=== PATIENT | female | born 1980 | race Caucasian/White ===

== ENCOUNTER 2019-09-30 23:19 | Inpatient (IN) | payer OTHER ==
[2019-09-30] MEDS ORDERED: ZOLPIDEM TARTRATE 5 MG TABLET PO PRN (23:36)
[2019-09-30] MEDS ORDERED: RINGERS SOLUTION,LACTATED 300 ML IV ONE (23:36)
[2019-09-30] MEDS ORDERED: ACETAMINOPHEN 325 MG TABLET PO PRN (23:36)
[2019-09-30] MEDS ORDERED: OXYTOCIN/0.9 % SODIUM CHLORIDE 30 UNIT/500 ML RTUINJ IV PRN (23:36)
[2019-09-30] MEDS ORDERED: MAG HYDROX/AL HYDROX/SIMETH SUSP 30 ML UDCUP PO PRN (23:36)
[2019-09-30] MEDS ORDERED: DINOPROSTONE 10 MG VAGINAL INSERT.SR PV ONE (23:36)
[2019-09-30] MEDS ORDERED: PENICILLIN G POTASSIUM 5,000,000 UNIT in DEXTROSE 5%-WATER 100 ML IV ONE (23:42)
[2019-10-01] MEDS: RINGERS SOLUTION,LACTATED 1,000 ML IV PRN ×3 (00:45→22:57)
[2019-10-01 00:46] LABS: APPEARANCE,URINE SLIGHTLY-CLOUDY; BILIRUBIN,URINE NEGATIVE (NEGATIVE); COLOR,URINE STRAW; GLUCOSE, URINE NEGATIVE (NEGATIVE); KETONES,URINE NEGATIVE (NEGATIVE); LEUKOCYTE ESTERASE,URINE TRACE (NEGATIVE); NITRITE,URINE NEGATIVE (NEGATIVE); PROTEIN,URINE NEGATIVE (NEGATIVE); URINE SPECIFIC GRAVITY 1.006; UROBILINOGEN,URINE NEGATIVE mg/dL (<2.0)
[2019-10-01 00:47] LABS: ABSOLUTE EOSINOPHILS # (AUTO) 0.2 10^3/uL (0.0-0.6); ABSOLUTE LYMPHOCYTES (AUTO) 2.2 10^3/uL (0.5-4.7); ABSOLUTE MONOCYTES (AUTO) 0.8 10^3/uL (0.1-1.4); ABSOLUTE NEUT (AUTO) 7.1 10^3/uL (1.7-8.2); BASOPHILS % (AUTO) 0.4 % (0-2); EOSINOPHILS % (AUTO) 1.8 % (0-6); HEMATOCRIT 37.1 % (36.0-47.0); HEMOGLOBIN 12.8 g/dL (12.0-15.5); LYMPHOCYTES % (AUTO) 21.4 % (13-45); MEAN CORPUSCULAR HEMOGLOBIN 32.8 pg (27.0-33.4); MEAN CORPUSCULAR HGB CONC 34.5 g/dL (32.0-36.0); MEAN CORPUSCULAR VOLUME 95 fl (80-97); MONOCYTES % (AUTO) 7.8 % (3-13); PLATELET COUNT 108 10^3/uL (150-450); RED CELL DISTRIBUTION WIDTH 15.3 % (11.5-14.0); SEGMENTED NEUTROPHILS % (AUTO) 68.6 % (42-78); TOTAL CELLS COUNTED % (AUTO) 100 %; WHITE BLOOD COUNT 10.4 10^3/uL (4.0-10.5)
[2019-10-01] MEDS ORDERED: DINOPROSTONE 10 MG VAGINAL INSERT.SR ONE (01:03)
[2019-10-01 01:26] LABS: URINE AMPHETAMINES SCREEN NEGATIVE; URINE BARBITURATES SCREEN NEGATIVE; URINE BENZODIAZEPINES SCREEN NEGATIVE; URINE COCAINE SCREEN NEGATIVE; URINE MARIJUANA (THC) SCREEN NEGATIVE; URINE METHADONE SCREEN NEGATIVE; URINE PHENCYCLIDINE SCREEN NEGATIVE
[2019-10-01] MEDS ORDERED: PENICILLIN G POTASSIUM 2,500,000 UNIT in DEXTROSE 5%-WATER 50 ML IV SCH (03:43)
--- NOTE | 2019-10-01 07:14 | Admission Physical ---
Datetime Report Generated by CPN: 10/01/2019 07:13 CURRENT ADMISSION Chief Complaint: Scheduled Induction of Labor Indication for Induction: Postterm; Polyhydramnios Admit Impression : Term, Intrauterine ; No Active Labor; Induction of Labor Admit Plan: Admit to Unit; Initiate Labor Induction Protocol ALLERGIES Medication Allergies: Yes Medication Allergies: prochlorperazine/Dystonia (10/01/2019); proguanil (10/01/2019); atovaquone (10/01/2019) Latex: No Latex Allergies OBSTETRICAL HISTORY EDC: 09/26/2019 00:00 : 1 Para: 0 Term: 0 : 0 SAB: 0 IAB: 0 Ectopic: 0 Livin Cesareans: 0 VBACs: 0 Multiple Births: 0 Gestational Diabetes: Yes Rh Sensitization: No Incompetent Cervix: No ADRIEL: No Infertility: No ART Treatment: No Uterine Anomaly: No IUGR: No Hx Previous C/S: No Macrosomia: No Hx Loss/Stillborn: No PIH: No Hx : No Depression/PP Depression: No PTL/PROM: No Post Hemorrhage: No Current Procedures: Ultrasound; NST SEE RECORDS Alcohol: No Marijuana : No Cocaine: No Other Illicit Drugs: No Cigarettes: Never Smoker. 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 Heart Disease: No Hosp/Surgery: No Autoimmune Disorder: No Anesthetic Complications: No Kidney Disease: No Abnormal Pap Smear: No Neuro/Epilepsy: No Psychiatric Disorders: No Other Medical Diseases: No Hepatitis/Liver Disease: No Significant Family History: No Varicosities/Phlebitis: No Trauma/Violence : No Thyroid Dysfunction: No Medical History Comments: cyst removal in 1994, PCOS INFECTIOUS HISTORY Gonorrhea: No Genital Herpes: Yes Chlamydia: No Tuberculosis: No Syphilis: No Hepatitis: No HIV/AIDS Exposure: No Rash or Viral Illness: No HPV: No PHYSICAL EXAM General: Normal HEENT: Normal Neurologic: Normal Thyroid: Normal Heart: Normal Lungs: Normal Breast: Normal Back: Normal Abdomen: Normal Genitourinary Exam: Normal Extremities: Normal DTRs: Normal Pelvic Type: Adequate Vital Signs: Reviewed; Within Normal Limits VAGINAL EXAM Dilatation: 1 Effacement: 25 Station: -3 MEMBRANES Pooling: Negative Membranes: Intact FETUS A EGA: 40.5 Monitoring: External US FHR- Baseline: 130 Variability: Moderate 6-25bpm Accelerations: 15X15 Decelerations: None FHR Category: Category I Estimated Weight (gm): 3900 Presentation: Vertex Admit Comment: cervidil PLANS FOR LABOR AND DELIVERY Labor and Delivery: Plan Pain Management: Natural Feeding Preference: Breast Benefit of Breast Feed Discussed: Yes Circumcision: Yes INFORMED CONSENT Signature: with User ID: [email or web address]
[2019-10-01] MEDS ORDERED: OXYTOCIN 10 UNIT/ML VIAL ONE (10:14)
[2019-10-01] MEDS ORDERED: MISOPROSTOL 0.2 MG TABLET ONE (10:14)
[2019-10-01] MEDS ORDERED: OXYTOCIN/0.9 % SODIUM CHLORIDE 30 UNIT/500 ML RTUINJ ONE (10:15)
[2019-10-01] MEDS ORDERED: LIDOCAINE 1% INJ-PF (10 MG/ML) 30 ML SDV ONE (10:15)
[2019-10-01] MEDS ORDERED: PENICILLIN G-K 5 MILLION UNIT VIAL ONE (13:07)
[2019-10-01] MEDS ORDERED: GENTAMICIN SULFATE INJ 80 MG/2 ML VIAL IV ONE (13:24)
[2019-10-01] MEDS ORDERED: GENTAMICIN SULFATE INJ 80 MG/2 ML VIAL IV SCH (14:00)
[2019-10-01] MEDS ORDERED: GENTAMICIN SULFATE 160 MG in DEXTROSE 5%-WATER 100 ML IV ONE (14:30)
[2019-10-01] MEDS: PENICILLIN G POTASSIUM 2,500,000 UNIT in DEXTROSE 5%-WATER 50 ML IV SCH ×2 (17:18→21:44)
[2019-10-01 19:50] LABS: HEMATOCRIT 39.2 % (36.0-47.0); HEMOGLOBIN 13.1 g/dL (12.0-15.5); MEAN CORPUSCULAR HEMOGLOBIN 31.9 pg (27.0-33.4); MEAN CORPUSCULAR HGB CONC 33.5 g/dL (32.0-36.0); MEAN CORPUSCULAR VOLUME 96 fl (80-97); PLATELET COUNT 115 10^3/uL (150-450); RED CELL DISTRIBUTION WIDTH 15.5 % (11.5-14.0); WHITE BLOOD COUNT 14.3 10^3/uL (4.0-10.5)
[2019-10-01] MEDS ORDERED: FENTANYL/BUPIVACAINE/NS/PF 300 MCG/150 ML RTUINJ EPI ONE (22:19)
[2019-10-01] MEDS ORDERED: EPHEDRINE SULFATE INJ 50 MG/1 ML AMPULE ONE (22:19)
[2019-10-01] MEDS ORDERED: BUPIVACAINE HCL 0.25 % INJ/PF (2.5 MG/1 ML) 30 ML VIAL ONE (22:20)
[2019-10-01] MEDS: GENTAMICIN SULFATE 110 MG in DEXTROSE 5%-WATER 100 ML IV SCH (22:56)
[2019-10-02] MEDS: PENICILLIN G POTASSIUM 2,500,000 UNIT in DEXTROSE 5%-WATER 50 ML IV SCH ×4 (01:53→13:52)
[2019-10-02] MEDS: GENTAMICIN SULFATE 110 MG in DEXTROSE 5%-WATER 100 ML IV SCH ×3 (06:46→22:16)
--- NOTE | 2019-10-02 10:03 | L&D Progress Notes ---
PROGRESS NOTES Datetime Report Generated by CPN: 10/02/2019 10:03 PROGRESS NOTE Vital Signs : Reviewed; Within Normal Limits Comment: Cat 1 strip, irregular uc's, feeling more pressure, changing position q 20 minutes, recheck cervix at 10:30 VAGINAL EXAM Dilatation: 1 Effacement: 25 Station: -3 LAST VAGINAL EXAM-NURSING Nursing Exam Dilitation: 8-9 Nursing Exam Effacement: 90 Nursing Exam Station: 0 Nursing Exam Contractions: repositioning patient MEMBRANES Pooling: Negative Membranes: Intact FETUS A Monitoring: External US : 40.5 Estimated Weight (gm): 3900 Presentation: Vertex SIGNATURE SIGNATURE: [id number] Assignment: Jen Mulligan MD Signature: with User ID: [email or web address] : with User ID: [email or web address]
[2019-10-02] MEDS ORDERED: DIPHENHYDRAMINE HCL 50 MG/ML VIAL IV ONE ×2 (10:41→10:43)
[2019-10-02] MEDS ORDERED: DIPHENHYDRAMINE HCL 50 MG/ML VIAL ONE (10:41)
[2019-10-02] MEDS: RINGERS SOLUTION,LACTATED 1,000 ML IV PRN (11:21)
--- NOTE | 2019-10-02 11:24 | L&D Progress Notes ---
PROGRESS NOTES Datetime Report Generated by CPN: 10/02/2019 11:24 PROGRESS NOTE Impression: Reassuring Heart Rate Vital Signs : Reviewed Comment: Benadryl given for cervix swelling, will reckeck in 1 hour, Dr. Mulligan on unit, advised of no change in cervix or descent from 8 AM, pt tired, discussed C/S and pt is agreeable, Dr. Mulligan will come in and discuss POC with her, Cat 1 strip, irreg uc's VAGINAL EXAM Dilatation: 1 Effacement: 25 Station: -3 LAST VAGINAL EXAM-NURSING Nursing Exam Dilitation: 8-9 Nursing Exam Effacement: 90 Nursing Exam Station: 0 Nursing Exam Contractions: repositioning patient MEMBRANES Pooling: Negative Membranes: Intact FETUS A Monitoring: External US Variability: Moderate 6-25bpm Accelerations: 15X15 FHR Category: Category I : 40.5 Estimated Weight (gm): 3900 Presentation: Vertex SIGNATURE SIGNATURE: [id number];[id number] Assignment: Jen Mulligan MD Signature: with User ID: [email or web address] : with User ID: [email or web address]
--- NOTE | 2019-10-02 11:49 | L&D Progress Notes ---
PROGRESS NOTES Datetime Report Generated by CPN: 10/02/2019 11:48 PROGRESS NOTE Impression: Reassuring Heart Rate Vital Signs : Reviewed Comment: VE complete, + 1, will start pushing, irreg uc's, Pitocin off, variable and late decelerations, moderate variability, change positions VAGINAL EXAM Dilatation: 1 Effacement: 25 Station: -3 LAST VAGINAL EXAM-NURSING Nursing Exam Dilitation: 8-9 Nursing Exam Effacement: 90 Nursing Exam Station: 0 Nursing Exam Contractions: repositioning patient MEMBRANES Pooling: Negative Membranes: Intact FETUS A Monitoring: External US Variability: Moderate 6-25bpm Accelerations: 15X15 FHR Category: Category I : 40.5 Estimated Weight (gm): 3900 Presentation: Vertex SIGNATURE SIGNATURE: [id number];[id number] Assignment: Jen Mulligan MD Signature: with User ID: [email or web address] : with User ID: [email or web address]
--- NOTE | 2019-10-02 13:44 | L&D Progress Notes ---
PROGRESS NOTES Datetime Report Generated by CPN: 10/02/2019 13:43 PROGRESS NOTE Impression: Reassuring Heart Rate Vital Signs : Reviewed Comment: Dr. Mulligan in room, pt pushing, nurses state she is making progress the last few pushed. variables and ocas late, moderate variability, + accels VAGINAL EXAM Dilatation: 1 Effacement: 25 Station: -3 LAST VAGINAL EXAM-NURSING Nursing Exam Dilitation: anterior lip Nursing Exam Effacement: 90 Nursing Exam Station: 0 Nursing Exam Contractions: repositioning patient MEMBRANES Pooling: Negative Membranes: Intact FETUS A Monitoring: External US Variability: Moderate 6-25bpm Accelerations: 15X15 FHR Category: Category I : 40.5 Estimated Weight (gm): 3900 Presentation: Vertex SIGNATURE SIGNATURE: [id number] Assignment: Jen Mulligan MD Signature: with User ID: [email or web address] : with User ID: [email or web address]
--- NOTE | 2019-10-02 14:30 | L&D Progress Notes ---
PROGRESS NOTES Datetime Report Generated by CPN: 10/02/2019 14:29 PROGRESS NOTE Impression: Reassuring Heart Rate Vital Signs : Reviewed Comment: Pt has been pushing and is very tired. The est wt is 7-8 lbs. The head is at 2 plus station. We are going to try a vacuum delivery. If it is unsuccessful we will likely proceed with a c section. VAGINAL EXAM Dilatation: 1 Effacement: 25 Station: -3 LAST VAGINAL EXAM-NURSING Nursing Exam Dilitation: anterior lip Nursing Exam Effacement: 90 Nursing Exam Station: 0 Nursing Exam Contractions: repositioning patient MEMBRANES Pooling: Negative Membranes: Intact FETUS A Monitoring: External US Variability: Moderate 6-25bpm Accelerations: 15X15 FHR Category: Category I : 40.5 Estimated Weight (gm): 3900 Presentation: Vertex SIGNATURE SIGNATURE: [id number];[id number] Assignment: Jen Mulligan MD Signature: with User ID: Patricia : with User ID: Patricia
[2019-10-02] MEDS ORDERED: CEFAZOLIN SODIUM 2 GM in DEXTROSE 5%-WATER 50 ML IV PRN (14:49)
[2019-10-02] MEDS ORDERED: FENTANYL CITRATE INJ/PF 100 MCG/2 ML AMPUL ONE (14:51)
[2019-10-02] MEDS ORDERED: OXYTOCIN 10 UNIT/ML VIAL ONE (14:51)
[2019-10-02] MEDS ORDERED: LIDOCAINE 2% INJ-PF (20 MG/ML) 10 ML AMPUL ONE (14:51)
[2019-10-02] MEDS ORDERED: MIDAZOLAM 2 MG/2 ML INJ ONE (14:52)
[2019-10-02] MEDS ORDERED: CEFAZOLIN 2 GM/D5W RTU 2 GM/50 ML RTUPB IV ONE (14:52)
[2019-10-02] MEDS ORDERED: MORPHINE SULFATE 10 MG/ML INJ ONE (14:52)
[2019-10-02] MEDS ORDERED: ONDANSETRON HCL INJ/PF 4 MG/2 ML SDV ONE (14:52)
[2019-10-02] MEDS ORDERED: OXYTOCIN/0.9 % SODIUM CHLORIDE 30 UNIT/500 ML RTUINJ ONE (14:52)
--- NOTE | 2019-10-02 16:13 | Operative Report ---
Operative Report DATE OF SURGERY: 10/02/19 PREOPERATIVE DIAGNOSIS: Arrest of descent POSTOPERATIVE DIAGNOSIS: Same OPERATION: Primary via low transverse uterine incision SURGEON: SEDA DE LA CRUZ ANESTHESIA: Epidural TISSUE REMOVED OR ALTERED: Placenta COMPLICATIONS: None ESTIMATED BLOOD LOSS: 600 cc INTRAOPERATIVE FINDINGS: Viable male . Normal uterus tubes and ovaries PROCEDURE: Patient was taken to the OR and placed in supine position after her spinal anesthesia. She is prepared and draped in sterile fashion. [place] was placed for drainage of the bladder. Low transverse incision was made and carried down the level of the fascia. The fascial incision was made with knife and extended bilaterally with curved Bartholomew scissors. The fascia was off the rectus muscles using sharp and blunt dissection. The rectus muscles are in the midline. The peritoneum was entered without incident. Bladder blade was placed in uterine segment was identified. A low transverse incision was made creating a bladder flap. Bladder blade was placed low transverse uterine incision was made with the knife and extended with fingertips. A vaginal hand was used to assist with delivering the head out of the pelvis. The baby was delivered with some fundal pressure. Mouth and nose were suctioned free. The cord is doubly clamped and cut. Baby is passed off to the shipper/receiver in attendance. The placenta was manually extracted with trailing membranes. The uterus was externalized wrapped in a moist lap sponge. Uterine contents wiped free. Uterus was closed with a running locking layer of 0 chromic suture using the second layer to imbricate the first completing a double layer closure of the uterus. She was noted to have 6 some degree of uterine atony after such a long labor. The serosa was closed with a running 2-0 chromic stitch. The pelvis was irrigated and suctioned free of fluid the uterus was replaced in the abdomen. The abdominal wall peritoneum was closed with running 2-0 chromic stitch. Fascia was closed with a running 0 Vicryl in 2 segments. Everett's layer was brought together with 0 plain gut stitch and the skin was closed with running subcuticular 4-0 undyed Vicryl stitch. The wound was dressed mother and baby did well.
--- NOTE | 2019-10-02 17:55 | Delivery Summary ---
Del Sum A-C Datetime Report Generated by CPN: 10/02/2019 17:55 DELIVERY PERSONNEL DELIVERY PERSONNEL: [id number] Delivery Doctor:: Jen Mulligan MD Nurse Concession Worker Certified:: Angela Corral CNM ADJUNCT TEACHER:: Neo Smith CRNA Labor and Delivery Nurse:: Eliane Luevano RN Side Trimmer:: Eliane Luevano RN Neonatal Nurse Practitioner:: SHERRY Alfaro Nursery Nurse:: Mariana Poon RN Mig Welder/OUTSIDE INSTALLATION MACHINIST: Lester Braswell CST Mig Welder/OUTSIDE INSTALLATION MACHINIST: Camille Cunha SHRIMPER MATERNAL INFORMATION Delivery Anesthesia: Epidural Medications After Delivery: Pitocin 30 Units in 500ml NS/D5W Meds After Delivery Comment: 20 units in 1000mL NS given in OR Delivery QBL: 845 Maternal Complications: Prolonged Labor > 20 Hrs; Prolonged Second Stage > 2 Hrs LABOR SUMMARY EDC: 09/26/2019 00:00 No. Babies in Womb: 1 Attempted: No Labor Anesthesia: Epidural LABOR INFORMATION Reason for Induction: Post Dates; Maternal Diabetes; Polyhydramnios (Annotations: Data stored by [facility] on behalf of user) Onset of Labor: 10/02/2019 23:45 Complete Dilatation: 10/02/2019 11:44 Cervical Ripening Agents: Cervidil Oxytocin: Induction Group B Beta Strep: positive Antibiotics # of Doses: 6 Antibiotics Time of Last Dose: 907 Name of Antibiotic Given: Penicillin Steroids Given: None Reason Steroids Not Administered: Not Applicable MEMBRANES Membranes Rupture Method: Spontaneous Rupture of Membranes: 10/01/2019 12:00 Length of Rupture (hr): 26.43 Amniotic Fluid Color: Clear Amniotic Fluid Amount: Scant Amniotic Fluid Odor: Normal STAGES OF LABOR Stage 1 hr: -12 Stage 1 min: -1 Stage 2 hr: 2 Stage 2 min: 42 Stage 3 hr: 1 Stage 3 min: 1 Total Time in Labor hr: -8 Total Time in Labor min: -18 VAGINAL DELIVERY Episiotomy: None Laceration #1: None Laceration Extension #1: N/A Sponge Count Correct: N/A Sharps Count Correct: N/A CSECTION DELIVERY Primary Indication: Arrest of Descent Other Primary Indication: CPD CSection Urgency: Non-Scheduled CSection Incidence: Primary Labor: Labor Elective: N/A CSection Incision: Lower Uterine Transverse BABY A INFORMATION Delivery Date/Time: 10/02/2019 14:26 Method of Delivery: Born in Route : No : N/A Forceps: N/A Vacuum Extraction: Failed Shoulder Dystocia : No PRESENTATION/POSITION BABY A Presentation: Cephalic Cephalic Presentation: Vertex Vertex Position: n/a Breech Presentation: N/A PLACENTA INFORMATION BABY A Placenta Delivery Time : 10/02/2019 15:27 Placenta Method of Delivery: Manual Removal Placenta Status: Delivered SCORES BABY A Heart Rate 1 min: >100 bpm Resp Effort 1 min: Good Cry Reflex Irritability 1 min: Cough or Sneeze or Pulls Away Muscle Tone 1 min: Active Motion Color 1 min: Blue/Pale Resuscitation Effort 1 min: Tactile Stimulation SCORE 1 MIN: 8 Heart Rate 5 min: >100 bpm Resp Effort 5 min: Good Cry Reflex Irritability 5 min: Cough or Sneeze or Pulls Away Muscle Tone 5 min: Active Motion Color 5 min: Body Milfay, Extremities Blue Resuscitation Effort 5 min: N/A SCORE 5 MIN: 9 INFORMATION BABY A Gestational Age at Delivery: 40.6 Gestational Status: Full Term- 39- 40.6 Weeks Infant Outcome : Liveborn Infant Condition : Stable Infant Sex: Male IDENTIFICATION BABY A Infant Verification Date/Time: 10/02/2019 14:40 ID Band Number: [id number] Mother's Name Verified: Yes Infant RN Verifying : Lillian Patricia RN Additional Verifying Personnel: T. Cleve, RN WEIGHT/LENGTH BABY A Infant Birthweight (gm): 3400 Infant Weight (lb): 7 Infant Weight (oz): 8 Length (in): 20.50 Length (cm): 52.07 CORD INFORMATION BABY A No. Cord Vessels: 3 Nuchal Cord : N/A Cord Blood Taken: Yes-For Eval (Mom's Blood Type - or O+) Infant Suction: None ASSESSMENT BABY A Infant Complications: None Physical Findings at Delivery: Within Normal Limits Respirations: Appears Normal Skin to Skin: Yes Rail Switchman/ALS Called : No Infant Care By: JHONNY Trent Transferred To: Nursery BABY B INFORMATION : N/A
[2019-10-02] MEDS ORDERED: ACETAMINOPHEN 1,000 MG/100 ML RTUPB IV ONE (18:08)
[2019-10-02] MEDS ORDERED: SIMETHICONE 80 MG TAB.CHEW PO PRN (19:13)
[2019-10-02] MEDS ORDERED: PROMETHAZINE HCL INJ 25 MG/1 ML VIAL IV PRN (19:13)
[2019-10-02] MEDS ORDERED: OXYTOCIN/0.9 % SODIUM CHLORIDE 30 UNIT/500 ML RTUINJ IV PRN (19:13)
[2019-10-02] MEDS ORDERED: DIPH/PERTUSS(ACELL)/TETANUS VAC/PF 0.5 ML SYR (>=10YO) IM PRN (19:13)
[2019-10-02] MEDS ORDERED: ACETAMINOPHEN 325 MG TABLET PO PRN (19:13)
[2019-10-02] MEDS ORDERED: RINGERS SOLUTION,LACTATED 1,000 ML IV PRN (19:13)
[2019-10-02] MEDS ORDERED: MEASLES,MUMPS&RUBELLA VACC/PF 0.5 ML VIAL SUBCUT PRN (19:13)
[2019-10-02] MEDS ORDERED: HYDROMORPHONE HCL INJ/PF 2 MG/ML AMPULE IV PRN (19:13)
[2019-10-02] MEDS ORDERED: ACETAMINOPHEN 1,000 MG/100 ML RTUPB IV PRN (19:13)
[2019-10-02] MEDS: OXYCODONE-ACETAMINOPHEN 5-325 MG TABLET PO PRN (20:37)
[2019-10-02] MEDS: KETOROLAC TROMETHAMINE INJ/PF 30 MG/1 ML SDV IV SCH (21:11)
[2019-10-02] MEDS ORDERED: GENTAMICIN SULFATE INJ 80 MG/2 ML VIAL ONE (21:38)
[2019-10-03] MEDS: OXYCODONE-ACETAMINOPHEN 5-325 MG TABLET PO PRN ×4 (01:17→17:01)
[2019-10-03] MEDS: KETOROLAC TROMETHAMINE INJ/PF 30 MG/1 ML SDV IV SCH ×2 (03:47→12:20)
[2019-10-03] MEDS ORDERED: GENTAMICIN SULFATE INJ 80 MG/2 ML VIAL ONE (05:32)
[2019-10-03] MEDS: GENTAMICIN SULFATE 110 MG in DEXTROSE 5%-WATER 100 ML IV SCH ×2 (05:43→13:11)
[2019-10-03 07:46] LABS: HEMATOCRIT 27.6 % (36.0-47.0); MEAN CORPUSCULAR HEMOGLOBIN 32.5 pg (27.0-33.4); MEAN CORPUSCULAR HGB CONC 33.5 g/dL (32.0-36.0); MEAN CORPUSCULAR VOLUME 97 fl (80-97); RED BLOOD COUNT 2.84 10^6/uL (3.72-5.28); RED CELL DISTRIBUTION WIDTH 15.9 % (11.5-14.0); WHITE BLOOD COUNT 16.6 10^3/uL (4.0-10.5)
[2019-10-03 08:35] LABS: HEMOGLOBIN 9.2 g/dL (12.0-15.5)
[2019-10-03 08:38] LABS: PLATELET COUNT 92 10^3/uL (150-450)
[2019-10-03] MEDS: DOCUSATE SODIUM 100 MG CAPSULE PO SCH ×2 (10:02→17:09)
[2019-10-03] MEDS: PRENATAL VITAMIN W DHA CAPSULE PO SCH (10:02)
--- NOTE | 2019-10-03 13:47 | PDOC PROGRESS REPORT ---
Subjective-OB Progress Note for:: 10/03/19 Subjective: Pt doing well, no concerns. She reports light bleeding, reg diet and voiding without difficulty. Physical Exam (OB) Vital Signs: Temp Pulse Resp BP Pulse Ox 98.3 F 85 16 114/66 99 10/03/19 07:54 10/03/19 07:54 10/03/19 07:54 10/03/19 07:54 10/03/19 07:54 Intake & Output 10/02/19 10/03/19 10/04/19 06:59 06:59 06:59 Intake Total 2102.75 1808.25 500 Output Total 725 300 Balance 2102.75 1083.25 200 - PIH/Pre-Eclampsia DTR's: 1 + Clonus: Negative Headache: Absent Epigastric Pain: No Visual Changes: No - Dressing Removed: - opsite Incision: Dressing - Lochia Lochia Amount: Small 10-25 ml Lochia Color: Rubra/Red - Abdomen Description: Soft, Round Hernia Present: No Fundal Description: Firm, Midline Fundal Height: u/u - u/2 Objective-Diagnostic Laboratory: 10/03/19 07:10 10/03/19 07:10 WBC 16.6 H RBC 2.84 L Hgb 9.2 L D Hct 27.6 L MCV 97 MCH 32.5 MCHC 33.5 RDW 15.9 H Plt Count 92 L Assessment and Plan(PN) - Assessment and Plan (1) Delivery by section Is this a current diagnosis for this admission?: Yes (2) tachycardia Is this a current diagnosis for this admission?: Yes (3) Polyhydramnios affecting Is this a current diagnosis for this admission?: Yes (4) Spontaneous rupture of membranes Is this a current diagnosis for this admission?: Yes - Time Spent with Patient Time with patient: Less than 15 minutes Medications reviewed and adjusted accordingly: Yes - Disposition Anticipated Discharge: Home Within: within 24 hours
[2019-10-03] MEDS: IBUPROFEN 800 MG TABLET PO SCH (17:06)
[2019-10-04] MEDS: IBUPROFEN 800 MG TABLET PO SCH ×3 (00:28→11:42)
[2019-10-04 07:32] LABS: HEMATOCRIT 25.9 % (36.0-47.0); HEMOGLOBIN 8.9 g/dL (12.0-15.5); MEAN CORPUSCULAR HEMOGLOBIN 33.1 pg (27.0-33.4); MEAN CORPUSCULAR HGB CONC 34.5 g/dL (32.0-36.0); MEAN CORPUSCULAR VOLUME 96 fl (80-97); PLATELET COUNT 100 10^3/uL (150-450); RED CELL DISTRIBUTION WIDTH 15.8 % (11.5-14.0); WHITE BLOOD COUNT 11.4 10^3/uL (4.0-10.5)
[2019-10-04] MEDS: PRENATAL VITAMIN W DHA CAPSULE PO SCH (10:21)
[2019-10-04] MEDS: DOCUSATE SODIUM 100 MG CAPSULE PO SCH (10:21)
--- NOTE | 2019-10-04 10:38 | PDOC PROGRESS REPORT ---
Subjective-OB Progress Note for:: 10/04/19 Subjective: Doing well, feeling alot better, baby and hsb in room, asking questions, voiding, passing gas, eating Physical Exam (OB) Vital Signs: Temp Pulse Resp BP Pulse Ox 98.3 F 92 18 128/60 H 100 10/04/19 07:17 10/04/19 07:17 10/04/19 07:17 10/04/19 07:17 10/04/19 07:17 Intake & Output 10/03/19 10/04/19 10/05/19 06:59 06:59 06:59 Intake Total 1808.25 1100 Output Total 725 900 Balance 1083.25 200 - PIH/Pre-Eclampsia DTR's: 2 + Clonus: Negative Headache: Absent Epigastric Pain: No Visual Changes: No - Dressing Removed: - opsite in place/old drainage marked Incision: Dressing - Lochia Lochia Amount: Scant < 10 ml Lochia Color: Rubra/Red - Abdomen Description: Soft, Round Hernia Present: No Fundal Description: Firm, Midline Fundal Height: u/u - u/2 Objective-Diagnostic Laboratory: 10/04/19 07:02 10/04/19 07:02 WBC 11.4 H RBC 2.70 L Hgb 8.9 L Hct 25.9 L MCV 96 MCH 33.1 MCHC 34.5 RDW 15.8 H Plt Count 100 L Assessment and Plan(PN) - Assessment and Plan (1) AMA (advanced maternal age) multigravida 35+ Qualifiers: Trimester: first trimester Qualified Code(s): O09.521 - Supervision of elderly multigravida, first trimester Is this a current diagnosis for this admission?: Yes (2) Delivery by section Is this a current diagnosis for this admission?: Yes (3) tachycardia Is this a current diagnosis for this admission?: Yes (4) Spontaneous rupture of membranes Is this a current diagnosis for this admission?: Yes (5) Polyhydramnios affecting Is this a current diagnosis for this admission?: Yes - Time Spent with Patient Time with patient: Less than 15 minutes Medications reviewed and adjusted accordingly: Yes - Disposition Anticipated Discharge: Home Within: within 24 hours
--- NOTE | 2019-10-04 10:45 | PDOC DISCHARGE SUMMARY ---
Impression - Admit/DC Date/PCP Admission Date/Primary Care Provider: 09/30/19 23:19 Discharge Date: 10/04/19 - Discharge Diagnosis (1) AMA (advanced maternal age) multigravida 35+ Is this a current diagnosis for this admission?: Yes (2) Delivery by section Is this a current diagnosis for this admission?: Yes (3) tachycardia Is this a current diagnosis for this admission?: Yes (4) Spontaneous rupture of membranes Is this a current diagnosis for this admission?: Yes (5) Polyhydramnios affecting Is this a current diagnosis for this admission?: Yes - Additional Information Resuscitation Status: Full Code Discharge Diet: As Tolerated, Regular Discharge Activity: Activity As Tolerated, No Driving, No Lifting Over 10 Pounds , No Lifting/Push/Pulling, No tub bath Referrals: ANGY BENOIT MD [ACTIVE STAFF] - Prescriptions: Oxycodone HCl/Acetaminophen [Percocet 5-325 mg Tablet] 1 tab PO Q4HP PRN #20 tablet PRN Reason: Ibuprofen [Motrin 800 mg Tablet] 800 mg PO Q6 #30 tablet Home Medications: Cholecalciferol (Vitamin D3) [Vitamin D3] 1 tab PO DAILY 10/01/19 Prenat 115/Iron Fum/Folic/Dss [ 19 Tablet] 1 tab PO DAILY 10/01/19 Valacyclovir HCl [Valacyclovir] 1 tab PO DAILY 10/01/19 Ibuprofen [Motrin 800 mg Tablet] 800 mg PO Q6 #30 tablet 10/04/19 Oxycodone HCl/Acetaminophen [Percocet 5-325 mg Tablet] 1 tab PO Q4HP PRN #20 tablet 10/04/19 HPI Gestational Age: 40.6 Reason(s) for Admission: Induction of Labor, Ceasarean Section-Primary, Gestional Diabetes, Advanced Maternal Age Procedures: NST, Ultrasound Intrapartum Procedure(s): : Low Cervical, Transverse Hospital Course Hospital Course: routine Results Laboratory Results: WBC 11.4 10^3/uL (4.0-10.5) H 10/04/19 07:02 RBC 2.70 10^6/uL (3.72-5.28) L 10/04/19 07:02 Hgb 8.9 g/dL (12.0-15.5) L 10/04/19 07:02 Hct 25.9 % (36.0-47.0) L 10/04/19 07:02 MCV 96 fl (80-97) 10/04/19 07:02 MCH 33.1 pg (27.0-33.4) 10/04/19 07:02 MCHC 34.5 g/dL (32.0-36.0) 10/04/19 07:02 RDW 15.8 % (11.5-14.0) H 10/04/19 07:02 Plt Count 100 10^3/uL (150-450) L 10/04/19 07:02 Lymph % (Auto) 21.4 % (13-45) 10/01/19 00:28 [place] % (Auto) 7.8 % (3-13) 10/01/19 00:28 Eos % (Auto) 1.8 % (0-6) 10/01/19 00:28 Baso % (Auto) 0.4 % (0-2) 10/01/19 00:28 Absolute Neuts (auto) 7.1 10^3/uL (1.7-8.2) 10/01/19 00:28 Absolute Lymphs (auto) 2.2 10^3/uL (0.5-4.7) 10/01/19 00:28 Absolute Monos (auto) 0.8 10^3/uL (0.1-1.4) 10/01/19 00:28 Absolute Eos (auto) 0.2 10^3/uL (0.0-0.6) 10/01/19 00:28 Absolute Basos (auto) 0.0 10^3/uL (0.0-0.2) 10/01/19 00:28 Seg Neutrophils % 68.6 % (42-78) 10/01/19 00:28 Urine Color STRAW 09/30/19 23:45 Urine Appearance SLIGHTLY-CLOUDY 09/30/19 23:45 Urine pH 6.0 (5.0-9.0) 09/30/19 23:45 Ur Specific [place] 1.006 09/30/19 23:45 Urine Protein NEGATIVE mg/dL (NEGATIVE) 09/30/19 23:45 Urine Glucose (UA) NEGATIVE mg/dL (NEGATIVE) 09/30/19 23:45 Urine Ketones NEGATIVE mg/dL (NEGATIVE) 09/30/19 23:45 Urine Blood SMALL (NEGATIVE) H 09/30/19 23:45 Urine Nitrite NEGATIVE (NEGATIVE) 09/30/19 23:45 Urine Bilirubin NEGATIVE (NEGATIVE) 09/30/19 23:45 Urine Urobilinogen NEGATIVE mg/dL (<2.0) 09/30/19 23:45 Ur Leukocyte Esterase TRACE (NEGATIVE) H 09/30/19 23:45 Urine Ascorbic Acid NEGATIVE (NEGATIVE) 09/30/19 23:45 Membranes Rupture POSITIVE (NEGATIVE) H 10/01/19 12:25 Urine Opiates Screen NEGATIVE 09/30/19 23:45 Urine Methadone Screen NEGATIVE 09/30/19 23:45 Ur Barbiturates Screen NEGATIVE 09/30/19 23:45 Ur Phencyclidine Scrn NEGATIVE 09/30/19 23:45 Ur Amphetamines Screen NEGATIVE 09/30/19 23:45 U Benzodiazepines Scrn NEGATIVE 09/30/19 23:45 Urine Cocaine Screen NEGATIVE 09/30/19 23:45 U Marijuana (THC) Screen NEGATIVE 09/30/19 23:45 RPR NONREACTIVE (NONREACTIVE) 10/01/19 00:28 Blood Type O POSITIVE 10/01/19 00:28 Antibody Screen NEGATIVE 10/01/19 00:28 Plan Health Concerns: routine Plan of Treatment: d/c home, rev S&S to report Goals: no complications Time Spent: Less than 30 Minutes
[2019-10-04 13:39] VITALS: BP 119/64
--- NOTE | 2019-10-08 08:43 | Delivery Summary ---
Del Sum A-C Datetime Report Generated by CPN: 10/08/2019 08:42 DELIVERY PERSONNEL DELIVERY PERSONNEL: [id number] Delivery Doctor:: Jen Mulligan MD Nurse Water Taxi Driver Certified:: Angela Corral CNM PLANNER SCHEDULER:: Neo Smith CRNA Labor and Delivery Nurse:: Eliane Luevano RN Sane Nurse:: Eliane Luevano RN Neonatal Nurse Practitioner:: SHERRY Alfaro Nursery Nurse:: Mariana Poon RN Casing In Line Setter/SCRAP PREPARATION SUPERVISOR: Lester Braswell CST Casing In Line Setter/SCRAP PREPARATION SUPERVISOR: Camille Cunha PROCESS ASSISTANT MATERNAL INFORMATION Delivery Anesthesia: Epidural Medications After Delivery: Pitocin 30 Units in 500ml NS/D5W Meds After Delivery Comment: 20 units in 1000mL NS given in OR Delivery QBL: 845 Maternal Complications: Prolonged Labor > 20 Hrs; Prolonged Second Stage > 2 Hrs LABOR SUMMARY EDC: 09/26/2019 00:00 No. Babies in Womb: 1 Attempted: No Labor Anesthesia: Epidural LABOR INFORMATION Reason for Induction: Post Dates; Maternal Diabetes; Polyhydramnios (Annotations: Data stored by [facility] on behalf of user) Onset of Labor: 10/02/2019 23:45 Complete Dilatation: 10/02/2019 11:44 Cervical Ripening Agents: Cervidil Oxytocin: Induction Group B Beta Strep: positive Antibiotics # of Doses: 6 Antibiotics Time of Last Dose: 907 Name of Antibiotic Given: Penicillin Steroids Given: None Reason Steroids Not Administered: Not Applicable MEMBRANES Membranes Rupture Method: Spontaneous Rupture of Membranes: 10/01/2019 12:00 Length of Rupture (hr): 27.43 Amniotic Fluid Color: Clear Amniotic Fluid Amount: Scant Amniotic Fluid Odor: Normal STAGES OF LABOR Stage 1 hr: -12 Stage 1 min: -1 Stage 2 hr: 3 Stage 2 min: 42 Stage 3 hr: 0 Stage 3 min: 1 Total Time in Labor hr: -8 Total Time in Labor min: -18 VAGINAL DELIVERY Episiotomy: None Laceration #1: None Laceration Extension #1: N/A Sponge Count Correct: N/A Sharps Count Correct: N/A CSECTION DELIVERY Primary Indication: Arrest of Descent Other Primary Indication: CPD CSection Urgency: Non-Scheduled CSection Incidence: Primary Labor: Labor Elective: N/A CSection Incision: Lower Uterine Transverse BABY A INFORMATION Delivery Date/Time: 10/02/2019 15:26 Method of Delivery: Born in Route : No : N/A Forceps: N/A Vacuum Extraction: Failed Shoulder Dystocia : No PRESENTATION/POSITION BABY A Presentation: Cephalic Cephalic Presentation: Vertex Vertex Position: n/a Breech Presentation: N/A PLACENTA INFORMATION BABY A Placenta Delivery Time : 10/02/2019 15:27 Placenta Method of Delivery: Manual Removal Placenta Status: Delivered SCORES BABY A Heart Rate 1 min: >100 bpm Resp Effort 1 min: Good Cry Reflex Irritability 1 min: Cough or Sneeze or Pulls Away Muscle Tone 1 min: Active Motion Color 1 min: Blue/Pale Resuscitation Effort 1 min: Tactile Stimulation SCORE 1 MIN: 8 Heart Rate 5 min: >100 bpm Resp Effort 5 min: Good Cry Reflex Irritability 5 min: Cough or Sneeze or Pulls Away Muscle Tone 5 min: Active Motion Color 5 min: Body [place], Extremities Blue Resuscitation Effort 5 min: N/A SCORE 5 MIN: 9 INFORMATION BABY A Gestational Age at Delivery: 40.6 Gestational Status: Full Term- 39- 40.6 Weeks Infant Outcome : Liveborn Infant Condition : Stable Infant Sex: Male IDENTIFICATION BABY A Infant Verification Date/Time: 10/02/2019 14:40 ID Band Number: [id number] Mother's Name Verified: Yes Infant RN Verifying : Lillian Patricia RN Additional Verifying Personnel: T. Cleve, RN WEIGHT/LENGTH BABY A Infant Birthweight (gm): 3400 Infant Weight (lb): 7 Infant Weight (oz): 8 Length (in): 20.50 Length (cm): 52.07 CORD INFORMATION BABY A No. Cord Vessels: 3 Nuchal Cord : N/A Cord Blood Taken: Yes-For Eval (Mom's Blood Type - or O+) Infant Suction: None ASSESSMENT BABY A Infant Complications: None Physical Findings at Delivery: Within Normal Limits Respirations: Appears Normal Skin to Skin: Yes Ingot Buggy Operator/ALS Called : No Infant Care By: JHONNY Trent Transferred To: Nursery BABY B INFORMATION : N/A
== END 2019-10-04 15:04 | disposition home or self-care (01) | DRG 788 ==
LOC: LR 23:19 → 2S 10-02 18:45
PROVIDERS: ADMIT Obstetrics & Gynecology; ATTEND Obstetrics & Gynecology
PROC: 10D00Z1 Extraction of Products of Conception, Low, Open Approach (ICD-10-PCS; principal; 2019-10-02)
PROC: 3E033VJ Introduction of Other Hormone into Peripheral Vein, Percutaneous Approach (ICD-10-PCS; 2019-10-02)
DX: O48.0 Post-term pregnancy (principal); O40.3XX0 Polyhydramnios, third trimester, not applicable or unspecified; O76 Abnormality in fetal heart rate and rhythm complicating labor and delivery; O63.1 Prolonged second stage (of labor); O99.824 Streptococcus B carrier state complicating childbirth; O32.4XX0 Maternal care for high head at term, not applicable or unspecified; Z88.8 Allergy status to other drugs, medicaments and biological substances; Z3A.40 40 weeks gestation of pregnancy; Z37.0 Single live birth
CPT/HCPCS: 1967; 1968; 36415; 80307; 81005; 84112; 85025; 85027; 86592; 86695; 86696; 86850; 86900; 86901; 87529; 94760; 94799; C1758; J0131; J0690; J1200; J1580; J1885; J2250; J2270; J2405; J2540; J2590; J3010; J3490; J7060